=== PATIENT | male | born 1940 | race Two or more races ===

== ENCOUNTER 2021-09-24 22:57 | Inpatient (IN) | payer MEDICARE, OTHER ==
[~2021-09-24] VITALS: Ht 165.1 cm; Wt 77.1 kg
[2021-09-25 00:43] VITALS: BP 116/62
[2021-09-25] MEDS ORDERED: Z GUARD REMEDY 4 OZ OINT TP PRN (02:00)
[2021-09-25] MEDS ORDERED: ZOLPIDEM TARTRATE 5 MG TABLET PO PRN (02:00)
[2021-09-25] MEDS ORDERED: HYDROCODONE/APAP 5/325MG TABLET PO PRN (02:00)
[2021-09-25] MEDS ORDERED: ONDANSETRON HCL/PF 4 MG/2 ML VIAL IVP PRN (02:00)
[2021-09-25] MEDS ORDERED: ACETAMINOPHEN 325 MG TABLET PO PRN (02:00)
[2021-09-25] MEDS ORDERED: MAGNESIUM HYDROXIDE 30 ML UDC PO PRN (02:00)
[2021-09-25] MEDS ORDERED: MAG HYDROX/AL HYDROX/SIMETH 30 ML UDC PO PRN (02:00)
[2021-09-25 02:04] VITALS: BP 116/62
[2021-09-25] MEDS ORDERED: TAMS-12 PO (02:15)
[2021-09-25] MEDS ORDERED: CLOP75TA15 PO (02:15)
[2021-09-25] MEDS ORDERED: LOSA50TA39 PO (02:15)
[2021-09-25] MEDS ORDERED: ALBU6.7H9 INH (02:18)
[2021-09-25] MEDS ORDERED: ENOXAPARIN SODIUM 40 MG/0.4 ML DISP.SYRIN SQ ONE (02:30)
--- NOTE | 2021-09-25 02:38 | NUR ---
NASREEN/TELE/RN RECEIVED PATIENT FROM [facility] BY AMBULANCE AT ABOUT 0043. PATIENT WAS AWAKE, ALERT, ORIENTED, COMFORTABLE, NO C/O PAIN, NO DISTRESS NOTED. PATIENT WAS MADE COMFORTABLE IN BED, TELE MONITOR APPLIED. ADMISSION DONE PER PROTOCOL. UNABLE TO DO FULL PHYSICAL ASSESSMENT PATIENT REFUSED TO REMOVE HIS SHIRT AND PANTS. ABLE TO ASSESS THE BLE SWELLING, REDNESS AND SOME BRUISES AND PATIENT ALLOWED TO TAKE PICTURE OF THEM. PLAN OF CARE DISCUSSED WITH THE PATIENT AND VERBALISED UNDERSTANDING AND AGREEMENT. TAUGHT THE USE OF CALL LIGHT AND PLACED IT AT BEDSIDE WITHIN REACH. ALL NEEDS ATTENDED AT THIS TIME. WILL MONITOR.
[2021-09-25 04:00] VITALS: BP 141/62
[2021-09-25 06:27] LABS: BASOPHILS % (AUTO) 0.2 % (0.0-2.0); EOSINOPHILS % (AUTO) 1.5 % (0.0-6.0); HEMATOCRIT 41 % (39-51); HEMOGLOBIN 13.4 g/dL (13.5-17.5); LYMPHOCYTES % (AUTO) 42.1 % (20.0-44.0); MEAN CORPUSCULAR HGB CONC 33 g/dl (31.0-36.0); MEAN CORPUSCULAR VOLUME 85 fL (80-96); MONOCYTES % (AUTO) 14.6 % (2.0-12.0); NEUTROPHILS % (AUTO) 41.6 % (43.0-81.0); PLATELET COUNT (AUTO) 241 K/uL (150-450); RED BLOOD CELL COUNT(AUTO) 4.81 MIL/uL (4.5-6.0); WHITE BLOOD COUNT (AUTO) 7.2 K/uL (4.3-11.0)
--- NOTE | 2021-09-25 06:41 | NUR ---
MS/TELE/RN PATIENT IS IN BED AWAKE, ALERT, ORIENTED, USING HIS CELLPHONE, ALL NEEDS ATTENDED AT THIS TIME, WILL CONTINUE TO MONITOR.
[2021-09-25 07:06] LABS: ALBUMIN 3.3 g/dL (3.4-5.0); BILIRUBIN,TOTAL 1.1 mg/dL (0.2-1.0); CALCIUM, SERUM 8.5 mg/dL (8.5-10.1); POTASSIUM 3.8 mmol/L (3.5-5.1); TOTAL PROTEIN, SERUM 6.2 g/dL (6.4-8.2)
[2021-09-25] MEDS ORDERED: PANTOPRAZOLE 40 MG TABLET.DR PO SCH (07:30)
--- NOTE | 2021-09-25 07:33 | NUR ---
RN OPENING NOTES PATIENT AWAKE, A/O X4. NO S/S OF PAIN NOTED AT THIS TIME. PATIENT ON ROOM AIR, NO DISTRESS OR SHORTNESS OF BREATH. IV ACCESS LAC #20G, INTACT, PATENT AND FLUSHING WELL. PATIENT ON EXTERNAL PATIENT CARE REPRESENTATIVE CURRENT READING OF S.R. WITH AV BLOCK AND HR OF 64. FALL AND SAFETY MEASURES IN PLACE, BED ALARM ON, BED IN LOW AND LOCK POSITION, CALL LIGHT AND TABLE WITHIN EASY REACH, SIDE RAILS UP X2. WILL CONTINUE TO MONITOR.
[2021-09-25 08:10] VITALS: BP 119/73
[2021-09-25] MEDS ORDERED: CYCL30DR EACHEYE (08:29)
[2021-09-25] MEDS ORDERED: AMLO2.5T4 PO (08:29)
[2021-09-25] MEDS ORDERED: OMEP40CA21 PO (08:29)
[2021-09-25] MEDS ORDERED: ATOR40TA PO (08:29)
[2021-09-25] MEDS ORDERED: CARV3.122 PO (08:29)
[2021-09-25] MEDS ORDERED: BISA10SU11 RC (08:39)
[2021-09-25] MEDS ORDERED: DOCU-141 PO (08:39)
[2021-09-25] MEDS: FUROSEMIDE 40 MG/4 ML VIAL IV SCH (09:06)
[2021-09-25] MEDS ORDERED: Medication Not On Formulary EA (Cyclosporine (Restasis) 1 DROP) EACHEYE PRN (11:00)
[2021-09-25] MEDS ORDERED: ALBUTEROL FS 2.5 MG/0.5 ML VIAL.NEB NEB PRN (11:30)
[2021-09-25] MEDS: BISACODYL SUPP (10 MG) 10 MG/SUPP.RECT SUPP.RECT RC PRN (12:17)
[2021-09-25 16:00] VITALS: BP 118/65
[2021-09-25] MEDS: DOCUSATE SODIUM 100 MG CAPSULE PO SCH (17:04)
[2021-09-25] MEDS: LOSARTAN POTASSIUM 50 MG TABLET PO SCH (17:05)
[2021-09-25] MEDS ORDERED: TAMSULOSIN 0.4 MG CAP.SR.24H PO SCH (18:00)
[2021-09-25] MEDS ORDERED: ATORVASTATIN 40 MG TABLET PO SCH (18:00)
--- NOTE | 2021-09-25 18:45 | NUR ---
RN CLOSING NOTES PATIENT AWAKE, A/O X4. NO S/S OF PAIN NOTED AT THIS TIME. PATIENT ON ROOM AIR, NO DISTRESS OR SHORTNESS OF BREATH. IV ACCESS LAC #20G, INTACT, PATENT AND FLUSHING WELL. PATIENT ON EXTERNAL WIRELINE FIELD OPERATOR CURRENT READING OF S.R. AND HR OF 60. ALL SCHEDULE MEDS ADMINISTERED. FALL AND SAFETY MEASURES IN PLACE, BED ALARM ON, BED IN LOW AND LOCK POSITION, CALL LIGHT AND TABLE WITHIN EASY REACH, SIDE RAILS UP X2. WILL ENDORSE TO MANAGER INTENSIVE CARE UNIT.
[2021-09-25 20:00] VITALS: BP 139/79
--- NOTE | 2021-09-25 20:00 | NUR ---
ELECTRICAL ASSISTANT OPENING NOTE PATIENT SLEEPING IN BED, EASILY AWAKENED, ALERT/ORIENTED X 4, PT ABLE TO MAKE NEEDS KNOWN. PATIENT STABLE ON RA, NO S/S OF DISTRESS OR SOB NOTED, BREATHING EVEN AND UNLABORED. PT ON EXTERNAL PHARMACY INFORMATICS MANAGER READING SINUS RHYTHM, HR: 69. IV ACCESS ON LEFT AC #20G INTACT AND SALINE LOCKED. PATIENT IS AMBULATORY AND STEADY. SAFETY MEASURES IN PLACE: CALL LIGHT WITHIN REACH, SIDE RAILS UP X 2, BED LOCKED IN LOW POSITION. WILL CONTINUE TO MONITOR PATIENT
[2021-09-25] MEDS ORDERED: ENOXAPARIN SODIUM 40 MG/0.4 ML DISP.SYRIN SQ SCH (21:00)
--- NOTE | 2021-09-25 22:36 | NUR ---
RN NOTE PATIENT REQUESTING X-RAY OF BILATERAL LEGS, NOTIFIED OPTIMIZATION MANAGER MD WITH ORDER TO ASK DAYSHIFT MD. WILL ENDORSE TO DAYSHIFT NURSE
[2021-09-26] VITALS: BP 121/64
[2021-09-26 04:55] LABS: BILIRUBIN,URINE NEGATIVE (NEGATIVE); COLOR,URINE YELLOW (YELLOW); LEUKOCYTE ESTERASE ,URINE NEGATIVE (NEGATIVE); NITRITE, URINE NEGATIVE (NEGATIVE); PROTEIN,URINE NEGATIVE (NEGATIVE); UGLUCOSE NEGATIVE (NEGATIVE); UROBILINOGEN,URINE 0.2 EU/dL (0.2)
[2021-09-26 04:57] LABS: BACTERIA,URINE None seen /HPF (None Seen); RBC,URINE 0-2 /HPF (0-2); WBC,URINE 0-2 /HPF (0-3)
[2021-09-26 04:58] LABS: SQUAMOUS EPITHELIAL CELL,UR Few /HPF (None Seen)
[2021-09-26 05:00] VITALS: BP 114/49
[2021-09-26 06:42] LABS: BASOPHILS % (AUTO) 0.2 % (0.0-2.0); EOSINOPHILS % (AUTO) 1.1 % (0.0-6.0); HEMATOCRIT 39 % (39-51); HEMOGLOBIN 12.7 g/dL (13.5-17.5); LYMPHOCYTES # (AUTO) 3.4 K/uL (0.8-4.8); LYMPHOCYTES % (AUTO) 44.1 % (20.0-44.0); MEAN CORPUSCULAR HGB CONC 33 g/dl (31.0-36.0); MEAN CORPUSCULAR VOLUME 85 fL (80-96); MONOCYTES # (AUTO) 0.9 K/uL (0.1-1.30); MONOCYTES % (AUTO) 12.3 % (2.0-12.0); NEUTROPHILS # (AUTO) 3.3 K/uL (1.8-8.9); NEUTROPHILS % (AUTO) 42.3 % (43.0-81.0); PLATELET COUNT (AUTO) 233 K/uL (150-450); RED BLOOD CELL COUNT(AUTO) 4.61 MIL/uL (4.5-6.0); WHITE BLOOD COUNT (AUTO) 7.7 K/uL (4.3-11.0)
[2021-09-26 06:48] LABS: CALCIUM, SERUM 8.3 mg/dL (8.5-10.1); CREATININE 1.1 mg/dL (0.6-1.3); MAGNESIUM 2.2 mg/dL (1.8-2.4)
--- NOTE | 2021-09-26 07:02 | NUR ---
SHELLFISH SORTER CLOSING NOTES PATIENT AWAKE IN ROOM, NO SIGNIFICANT CHANGES THROUGHOUT SHIFT. PATIENT STABLE ON RA, NO S/S OF DISTRESS OR SOB NOTED, BREATHING EVEN AND UNLABORED. PT ON EXTERNAL DEPOSITION REPORTER READING SINUS KEVON, HR: 53. MEDICATIONS GIVEN ORDERED, PT NEEDS MET THROUGHOUT SHIFT. PROVIDED PATIENT WITH ICE PACK FOR RIGHT LEG PER PATIENT REQUEST. SAFETY MEASURES IN PLACE: CALL LIGHT WITHIN REACH, SIDE RAILS UP X 2, BED LOCKED IN LOW POSITION. WILL ENDORSE TO DAY SHIFT NURSE FOR CONTINUITY OF CARE
[2021-09-26] MEDS ORDERED: PANTOPRAZOLE 40 MG TABLET.DR PO SCH (07:30)
--- NOTE | 2021-09-26 07:30 | NUR ---
RN OPENING NOTES PATIENT AWAKE IN BED RESTING, A/O X4. NO S/S OF PAIN NOTED AT THIS TIME. PATIENT ON ROOM AIR, NO DISTRESS OR SHORTNESS OF BREATH. IV ACCESS LAC #20G, INTACT, PATENT AND FLUSHING WELL. PATIENT ON EXTERNAL LASTING ROOM MACHINE OPERATOR CURRENT READING OF S.R. WITH AV BLOCK AND HR OF 64. FALL AND SAFETY MEASURES IN PLACE, BED ALARM ON, BED IN LOW AND LOCK POSITION, CALL LIGHT AND TABLE WITHIN EASY REACH, SIDE RAILS UP X2. WILL CONTINUE TO MONITOR.
[2021-09-26 07:52] LABS: THYROID STIMULATING HORMONE 2.651 uIU/mL (0.358-3.74)
[2021-09-26 08:00] VITALS: BP 133/75
[2021-09-26] MEDS: FUROSEMIDE 40 MG/4 ML VIAL IV SCH (08:47)
[2021-09-26] MEDS: BISACODYL SUPP (10 MG) 10 MG/SUPP.RECT SUPP.RECT RC PRN (08:48)
[2021-09-26] MEDS: DOCUSATE SODIUM 100 MG CAPSULE PO SCH (08:48)
[2021-09-26] MEDS: LOSARTAN POTASSIUM 50 MG TABLET PO SCH (08:49)
[2021-09-26 08:50] VITALS: BP 133/75
[2021-09-26] MEDS ORDERED: CLOPIDOGREL BISULFATE 75 MG TABLET PO SCH (09:00)
[2021-09-26] MEDS ORDERED: AMLODIPINE BESYLATE 2.5 MG TABLET PO SCH (09:00)
[2021-09-26] MEDS ORDERED: CARVEDILOL 3.125 MG TABLET PO SCH (09:00)
[2021-09-26] MEDS: POTASSIUM CHLORIDE 20 MEQ TAB.PRT.SR PO SCH ×3 (09:48→12:12)
[2021-09-26] MEDS ORDERED: FURO-145 PO (12:35)
[2021-09-26] MEDS ORDERED: POTA8TAB3 PO (12:35)
[2021-09-26] MEDS ORDERED: K PHOS NEUTRAL 250 MG TABLET PO ONE (14:00)
--- NOTE | 2021-09-26 17:00 | NUR ---
MANAGER DEVELOPMENTAL NOTE PATIENT DISCHARGE IN STABLE MEDICAL CONDITION. A/O X4. V/S TAKEN, STABLE AND RECORDED. NO IV ACCESS. PATIENT REFUSED SKIN ASSESSMENT AND PICTURES. NAME ARM BAND REMOVED. ALL BELONGINGS CHECKED AND SIGNED. HEALTH TEACHING AND DISCHARGE INSTRUCTIONS GIVEN AND VERBALIZED UNDERSTANDING. PATIENT LEFT UNIT AMBULATING WITH NO SIGNS OF DISTRESS, ACCOMPANIED BY RN TO THE LOBBY. CHARGE NURSE AWARE OF DISCHARGE.
== END 2021-09-26 17:05 | disposition home or self-care (01) | DRG 605 ==
LOC: TELE 09-25 00:39
PROVIDERS: ADMIT Nurse Practitioner Acute Care; ATTEND Nurse Practitioner Acute Care
DX: S80.11XA Contusion of right lower leg, initial encounter (principal); R60.9 Edema, unspecified; I10 Essential (primary) hypertension; I25.10 Atherosclerotic heart disease of native coronary artery without angina pectoris; E78.5 Hyperlipidemia, unspecified; N40.0 Benign prostatic hyperplasia without lower urinary tract symptoms; I35.0 Nonrheumatic aortic (valve) stenosis; I25.2 Old myocardial infarction; Z95.5 Presence of coronary angioplasty implant and graft; X58.XXXA Exposure to other specified factors, initial encounter; Y93.9 Activity, unspecified; Y92.009 Unspecified place in unspecified non-institutional (private) residence as the place of occurrence of the external cause
CPT/HCPCS: 36415; 71045-TC; 73590-TC; 80048-TC; 80053-TC; 80061-TC; 81001; 83735-TC; 83880; 84100-TC; 84443-TC; 84484-TC; 85025-TC; 87081-TC; 93307-TC; 93970-TC; 97116-TC; 97530-TC; G0378; J1650; J1940

== ENCOUNTER 2021-10-02 20:36 | Inpatient (IN) | payer MEDICARE, OTHER ==
[~2021-10-02] VITALS: Ht 165.1 cm; Wt 76.2 kg
[~2021-10-02 20:36] MED LIST: ALBU6.7H9 INH; AMLO2.5T4 PO; ATOR40TA PO; BISA10SU11 RC; CARV3.122 PO; CLOP75TA15 PO; CYCL30DR EACHEYE; DOCU-141 PO; FURO-145 PO; LOSA50TA39 PO; OMEP40CA21 PO; POTA8TAB3 PO; TAMS-12 PO
--- NOTE | 2021-10-02 20:58 | NUR ---
PT BIBSELF C/O BILATERAL LEG SWELLING X10 DAYS. PT AAOX4 BREATHING EVENLY AND UNLABORED. UPON ASSESSMENT, PT RT LEG IS LARGER THAN LT LEG. PT ATTACHED TO MONITOR AND POX. PT GIVEN BLANKET AND CALL LIGHT WITHIN REACH
--- NOTE | 2021-10-02 21:30 | NUR ---
US AT BEDSIDE
[2021-10-02 22:52] LABS: BASOPHILS % (AUTO) 0.4 % (0.0-2.0); EOSINOPHILS % (AUTO) 1.4 % (0.0-6.0); HEMATOCRIT 40 % (39-51); HEMOGLOBIN 12.9 g/dL (13.5-17.5); LYMPHOCYTES # (AUTO) 2.3 K/uL (0.8-4.8); MEAN CORPUSCULAR HGB CONC 32 g/dl (31.0-36.0); MEAN CORPUSCULAR VOLUME 87 fL (80-96); MONOCYTES % (AUTO) 17.8 % (2.0-12.0); NEUTROPHILS # (AUTO) 2.1 K/uL (1.8-8.9); NEUTROPHILS % (AUTO) 38.4 % (43.0-81.0); PLATELET COUNT (AUTO) 250 K/uL (150-450); RED BLOOD CELL COUNT(AUTO) 4.67 MIL/uL (4.5-6.0); WHITE BLOOD COUNT (AUTO) 5.6 K/uL (4.3-11.0)
--- NOTE | 2021-10-02 22:59 | NUR ---
COVID SWAB DONE AND SENT TO LAB
[2021-10-02] MEDS ORDERED: VANCOMYCIN 1 GM VIAL ONE (23:14)
[2021-10-02] MEDS ORDERED: VANCOMYCIN 1 GM in IV D5W 250 ML IV ONE (23:30)
--- NOTE | 2021-10-03 00:35 | NUR ---
EPIC PANEL PAGED
[2021-10-03 00:53] LABS: CALCIUM, SERUM 8.6 mg/dL (8.5-10.1); CARBON DIOXIDE 24 mmol/L (21-32); CHLORIDE 104 mmol/L (98-107); CREATININE 1.7 mg/dL (0.6-1.3); GLUCOSE 123 mg/dL (74-106); POTASSIUM 4.1 mmol/L (3.5-5.1); SODIUM SERUM 136 mmol/L (136-145)
[2021-10-03 00:59] LABS: UREA NITROGEN, BLOOD 25 mg/dL (7-18)
--- NOTE | 2021-10-03 01:00 | NUR ---
GAVE REPORT TO CORKY GARZA FOR CÉSAR
--- NOTE | 2021-10-03 01:13 | NUR ---
MRSA SENT TO LAB
--- NOTE | 2021-10-03 01:19 | NUR ---
ROOM 326 MS
[2021-10-03 01:45] VITALS: BP 108/61
[2021-10-03 01:50] VITALS: BP 108/61
--- NOTE | 2021-10-03 01:50 | NUR ---
patient arrived in the floor from er, awake, a.o x4. no s/sof distress noted. no complain of pain. call light within reach. bed alarm on, bed in lowest and locked position. patient refused to be skin assessed on the back, sacral and thighs and perineal area. patient refused to wear sock on the right foot. instructed to call for assistance when OOB, verbalized understanding. patient refused the left siderail to be up.
--- NOTE | 2021-10-03 02:52 | NUR ---
Informed THERESE Pfeiffer for admission orders.
[2021-10-03] MEDS ORDERED: MAG HYDROX/AL HYDROX/SIMETH 30 ML UDC PO PRN (03:00)
[2021-10-03] MEDS ORDERED: MAGNESIUM HYDROXIDE 30 ML UDC PO PRN (03:00)
[2021-10-03] MEDS ORDERED: ONDANSETRON HCL/PF 4 MG/2 ML VIAL IVP PRN (03:00)
[2021-10-03] MEDS ORDERED: IV NS 0.9% 1,000 ML IV PRN (03:00)
[2021-10-03 03:01] LABS: EOSINOPHILS % (MANUAL) 1 % (0-4); LYMPHOCYTES % (MANUAL) 44 % (16-48); MONOCYTES % (MANUAL) 13 % (0-11.0); NEUTROPHILS % (MANUAL) 42 (42-76)
[2021-10-03] MEDS: ENOXAPARIN SODIUM 30 MG/0.3 ML DISP.SYRIN SQ SCH ×2 (06:05→21:15)
--- NOTE | 2021-10-03 07:50 | NUR ---
MS RN OPENING NOTES RECEIVED PT IN BED WITH EYES CLOSED, EASY TO AROUSE. A/O X4. NO S/SX OF ACUTE DISTRESS NOTED. SO SOB. PT ON ROOM AIR, TOLERATING WELL. IV ACCESS LAC#20 PATENT AND INTACT WITH NS @60MLS/HR. SAFETY MEASURES IN PLACE WITH BED LOCKED IN LOW POSITION WITH SIDE RAILS UP X 2. CALL LIGHT IS WITHIN REACH. WILL CONTINUE TO MONITOR PATIENT THROUGHOUT SHIFT.
[2021-10-03 08:00] VITALS: BP 122/68
[2021-10-03] MEDS ORDERED: Medication Not On Formulary EA (Cyclosporine (Restasis) 1 DROP) EACHEYE PRN (08:30)
[2021-10-03] MEDS ORDERED: BISACODYL SUPP (10 MG) 10 MG/SUPP.RECT SUPP.RECT RC PRN (08:30)
[2021-10-03] MEDS: CARVEDILOL 3.125 MG TABLET PO SCH ×2 (08:49→08:55)
[2021-10-03] MEDS: DOCUSATE SODIUM 100 MG CAPSULE PO SCH ×2 (08:49→18:06)
[2021-10-03] MEDS: CLOPIDOGREL BISULFATE 75 MG TABLET PO SCH (08:49)
[2021-10-03] MEDS: LOSARTAN POTASSIUM 50 MG TABLET PO SCH ×3 (08:50→18:06)
[2021-10-03] MEDS: AMLODIPINE BESYLATE 2.5 MG TABLET PO SCH ×2 (08:50→08:55)
--- NOTE | 2021-10-03 08:50 | NUR ---
RN NOTE ALL BP MEDS HELD THIS MORNING D/T DECREASED BLOOD PRESSURE OF 105/65 HR 89.
[2021-10-03] MEDS ORDERED: ALBUTEROL FS 2.5 MG/0.5 ML VIAL.NEB IH PRN (09:00)
[2021-10-03] MEDS ORDERED: MORPHINE SULFATE INJ 2 MG/ML DISP.SYRIN IV PRN (12:30)
[2021-10-03 16:00] VITALS: BP 128/64
[2021-10-03] MEDS: ATORVASTATIN 40 MG TABLET PO SCH (18:06)
[2021-10-03] MEDS: TAMSULOSIN 0.4 MG CAP.SR.24H PO SCH (18:06)
--- NOTE | 2021-10-03 19:11 | NUR ---
MS RN CLOSING NOTES PT IS IN BED RESTING COMFORTABLY. A/O X4. NO S/SX OF ACUTE DISTRESS NOTED. SO SOB. PT ON ROOM AIR, TOLERATING WELL. IV ACCESS LAC#20 PATENT AND INTACT. NO C/O PAIN AT THIS TIME. SAFETY MEASURES IN PLACE WITH BED LOCKED IN LOW POSITION WITH SIDE RAILS UP X 2. CALL LIGHT IS WITHIN REACH. WILL ENDORSE CONTINUITY OF CARE TO ONCOMING SHIFT.
[2021-10-03 20:00] VITALS: BP 121/66
--- NOTE | 2021-10-03 20:08 | NUR ---
MS RN OPENING NOTES: RECEIVED PATIENT AWAKE IN BED, BED IN LOW POSITION, CALL LIGHTS WITHIN REACH, NO COMPLAIN OF PAIN AND DISCOMFORT AT THIS TIME, PATIENT IS A/OX4 ABLE TO MAKE NEEDS KNOWN, CONTINENT ON URINAL, ON ROOM AIR SATURATING WELL, WITH IV LINE AT LAC#20SL .PATIENT KEPT CLEAN AND DRY ALL NEEDS WILL CONTINUE TO MONITOR.
[2021-10-03 20:49] VITALS: BP 121/66
[2021-10-03] MEDS: ACETAMINOPHEN 325 MG TABLET PO PRN (22:22)
[2021-10-03] MEDS: VANCOMYCIN 1 GM in IV D5W 250 ML IV SCH (22:25)
[2021-10-04 06:44] LABS: BASOPHILS % (AUTO) 0.2 % (0.0-2.0); EOSINOPHILS % (AUTO) 1.2 % (0.0-6.0); HEMATOCRIT 43 % (39-51); HEMOGLOBIN 14.1 g/dL (13.5-17.5); LYMPHOCYTES % (AUTO) 60.2 % (20.0-44.0); MEAN CORPUSCULAR HGB CONC 33 g/dl (31.0-36.0); MEAN CORPUSCULAR VOLUME 86 fL (80-96); MONOCYTES % (AUTO) 15.6 % (2.0-12.0); NEUTROPHILS # (AUTO) 1.5 K/uL (1.8-8.9); NEUTROPHILS % (AUTO) 22.8 % (43.0-81.0); PLATELET COUNT (AUTO) 278 K/uL (150-450); RED BLOOD CELL COUNT(AUTO) 5.05 MIL/uL (4.5-6.0); WHITE BLOOD COUNT (AUTO) 6.7 K/uL (4.3-11.0)
--- NOTE | 2021-10-04 06:58 | NUR ---
RN CLOSING NOTES: RECEIVED PATIENT SLEEP IN BED COMFORTABLY, BED IN LOW POSITION, CALL LIGHTS WITHIN REACH, NO COMPLAIN OF PAIN AND DISCOMFORT AT THIS TIME, PATIENT ON ROOM AIR SDATURATING WELL, WITH IV LINE AT LAC#20 SL, PATIENT IS A/OX4 ABLE TO MAKE NEEDS KNOWN, AMBULATORY WITH SUPERVISION, PATIENT KEPT CLEAN AND DRY ALL NEEDS MET ENDORSE TO INCOMING SHIFT.
--- NOTE | 2021-10-04 07:41 | NUR ---
MS RN OPENING NOTE Patient in bed, awake. A/O x 4, able to make needs known. On room air, breathing evenly and unlabored. No SOB or s/s of distress noted. IV access on LAC #20G SL, intact and patent. Right lower leg redness noted. Safety precautions in place: bed in low, locked position; siderails up x 2; call light within reach. Will continue to monitor.
[2021-10-04] MEDS: CLOPIDOGREL BISULFATE 75 MG TABLET PO SCH (08:33)
[2021-10-04] MEDS: DOCUSATE SODIUM 100 MG CAPSULE PO SCH ×2 (08:33→17:26)
[2021-10-04] MEDS: FUROSEMIDE 20 MG/2 ML VIAL IV SCH (08:33)
[2021-10-04] MEDS: PANTOPRAZOLE 40 MG TABLET.DR PO SCH (08:33)
[2021-10-04] MEDS: AMLODIPINE BESYLATE 2.5 MG TABLET PO SCH (08:34)
[2021-10-04] MEDS: CARVEDILOL 3.125 MG TABLET PO SCH (08:34)
[2021-10-04 08:46] LABS: CARBON DIOXIDE 25 mmol/L (21-32)
[2021-10-04 10:43] LABS: CALCIUM, SERUM 8.9 mg/dL (8.5-10.1); CHLORIDE 104 mmol/L (98-107); CREATININE 1.4 mg/dL (0.6-1.3); GLUCOSE 114 mg/dL (74-106); MAGNESIUM 2.4 mg/dL (1.8-2.4); PHOSPHORUS 3.7 mg/dL (2.5-4.9); POTASSIUM 4.4 mmol/L (3.5-5.1); SODIUM SERUM 140 mmol/L (136-145); UREA NITROGEN, BLOOD 18 mg/dL (7-18)
--- NOTE | 2021-10-04 13:30 | NUR ---
RN NOTE Compression socks applied to BLE. Reinforced teaching on keeping legs elevated. Will continue to monitor patient.
[2021-10-04 16:00] VITALS: BP 98/60
[2021-10-04 16:19] LABS: CHOLESTEROL 140 mg/dL (<200); HDL CHOLESTEROL 30 mg/dL (40-60); LDL 88 mg/dL (0-99); TRIGLYCERIDES 129 mg/dL (30-150)
[2021-10-04] MEDS: ATORVASTATIN 40 MG TABLET PO SCH (17:26)
[2021-10-04] MEDS: TAMSULOSIN 0.4 MG CAP.SR.24H PO SCH (17:26)
--- NOTE | 2021-10-04 19:20 | NUR ---
MS RN CLOSING NOTE Patient in bed, asleep. A/O x 4, able to make needs known. Stable on room air, breathing evenly and unlabored. No SOB or s/s of distress noted. IV access on LAC #20G SL, intact and patent. Right lower leg redness noted. Compression socks on BLE. Due meds given. All needs attended to. Safety precautions maintained: bed in low, locked position; siderails up x 2; call light within reach. Will endorse to maintenance mechanic 2nd shift nurse for CÉSAR.
--- NOTE | 2021-10-04 19:21 | NUR ---
RN OPENING NOTES RECEIVED PT IN BED, ASLEEP, AWAKENS TO VERBAL STIMULI. ON RA AND TOLERATING WELL. NO SOB NOTED. NO S/SX OF RESPIRATORY DISTRESS NOTED. IV ACCESS IN LAC #20G. IV IS INTACT, PATENT, AND FLUSHING WELL. SAFETY PRECAUTIONS IN PLACE: BED IN LOWEST, LOCKED POSITION, SIDERAILS UPx2, AND BRAKES ON. TABLE AND CALL LIGHT WITHIN REACH. WILL CONTINUE TO MONITOR.
[2021-10-04 20:35] VITALS: BP 89/37
--- NOTE | 2021-10-04 21:04 | NUR ---
RETOOK BLOOD PRESSURE AND IT WAS 108/56 WITH PULSE OF 56.
[2021-10-04] MEDS: ENOXAPARIN SODIUM 30 MG/0.3 ML DISP.SYRIN SQ SCH (21:07)
[2021-10-04] MEDS: VANCOMYCIN 1 GM in IV D5W 250 ML IV SCH (22:03)
[2021-10-04] MEDS: ACETAMINOPHEN 325 MG TABLET PO PRN (22:27)
--- NOTE | 2021-10-05 06:46 | NUR ---
RN CLOSING NOTES PT IN BEDSIDE CHAIR, AWAKE. ON RA AND TOLERATING WELL. NO SOB NOTED. NO S/SX OF RESPIRATORY DISTRESS NOTED. IV ACCESS IN LAC #20G. IV IS INTACT, PATENT, AND FLUSHING WELL. ALL NEEDS MET. PT KEPT CLEAN AND DRY. SAFETY PRECAUTIONS IN PLACE: BED IN LOWEST, LOCKED POSITION, SIDERAILS UPx2, AND BRAKES ON. TABLE AND CALL LIGHT WITHIN REACH. WILL ENDORSE TO ONCOMING SHIFT FOR CÉSAR.
[2021-10-05] MEDS: PANTOPRAZOLE 40 MG TABLET.DR PO SCH (06:49)
--- NOTE | 2021-10-05 07:36 | NUR ---
RN OPENING NOTES RECEIVED PT IN BED, AWAKE, ABLE TO MAKE NEEDS KNOWN. ON RA AND TOLERATING WELL. NO SOB NOTED. NO S/SX OF RESPIRATORY DISTRESS NOTED. IV ACCESS IN LAC #20G, INTACT, PATENT, AND FLUSHING WELL. MAJO HOSE ON LEFT LEG NOTED. SAFETY PRECAUTIONS IN PLACE: BED IN LOWEST, LOCKED POSITION, SIDE RAILS UPx2, AND BRAKES ON. TABLE AND CALL LIGHT WITHIN REACH. WILL CONTINUE TO MONITOR ACCORDINGLY.
[2021-10-05 08:00] VITALS: BP 129/72
[2021-10-05] MEDS: CLOPIDOGREL BISULFATE 75 MG TABLET PO SCH (08:56)
[2021-10-05] MEDS: FUROSEMIDE 20 MG/2 ML VIAL IV SCH (08:56)
[2021-10-05] MEDS: DOCUSATE SODIUM 100 MG CAPSULE PO SCH ×2 (08:56→16:10)
[2021-10-05] MEDS: CARVEDILOL 3.125 MG TABLET PO SCH (08:57)
[2021-10-05] MEDS: AMLODIPINE BESYLATE 2.5 MG TABLET PO SCH (08:57)
[2021-10-05 12:01] LABS: CALCIUM, SERUM 8.7 mg/dL (8.5-10.1); CREATININE 1.3 mg/dL (0.6-1.3); POTASSIUM 3.8 mmol/L (3.5-5.1)
[2021-10-05 16:00] VITALS: BP 131/64
[2021-10-05] MEDS: TAMSULOSIN 0.4 MG CAP.SR.24H PO SCH (17:11)
[2021-10-05] MEDS: ATORVASTATIN 40 MG TABLET PO SCH (17:11)
--- NOTE | 2021-10-05 18:48 | NUR ---
RN CLOSING NOTES PATIENT IN BED, AWAKE, ABLE TO MAKE NEEDS KNOWN. ON RA AND TOLERATING WELL. NO SOB NOTED. NO S/SX OF RESPIRATORY DISTRESS NOTED. IV ACCESS IN LAC #20G, INTACT, PATENT, AND FLUSHING WELL. MAJO HOSE ON BOTH LEGS NOTED. SAFETY PRECAUTIONS IN PLACE: BED IN LOWEST, LOCKED POSITION, SIDE RAILS UPx2, AND BRAKES ON. TABLE AND CALL LIGHT WITHIN REACH. ALL NEEDS ATTENDED AND MET. DUE MEDS GIVEN ORDERED. WILL ENDORSE TO ONCOMING SHIFT FOR CÉSAR.
--- NOTE | 2021-10-05 19:45 | NUR ---
Patient is A&Ox4, awake and calm. States he has some discomfort to BLE but no pain. Hang stearns currently on. LAC #20G intact and patent. No needs at this time. No signs of distress. Will continue to monitor.
[2021-10-05 20:00] VITALS: BP 120/64
[2021-10-05] MEDS: ENOXAPARIN SODIUM 30 MG/0.3 ML DISP.SYRIN SQ SCH (20:34)
--- NOTE | 2021-10-05 23:54 | NUR ---
vanco trough still pending
--- NOTE | 2021-10-06 00:21 | NUR ---
Called lab -techs are currently giving endorsement. Made aware that Vanco trough is still not back yet despite being drawn at 2210. -cannot give vanco until results are back.
--- NOTE | 2021-10-06 01:23 | NUR ---
Called lab upon vanco trough still not back. Rep stated that vanco trough was 7.1 and is okay to hang next dose. Rep also stated he would re-enter results because it still only says pending when checked through [id number].
[2021-10-06] MEDS: VANCOMYCIN 1 GM in IV D5W 250 ML IV SCH (01:27)
--- NOTE | 2021-10-06 06:24 | NUR ---
Patient A&Ox4 stable overnight. Tolerating IV ABX well. LAC #20G still intact and patent. No issues just mild discomfort/ tenderness at R leg site with swelling.
[2021-10-06 06:26] LABS: BASOPHILS % (AUTO) 0.4 % (0.0-2.0); EOSINOPHILS % (AUTO) 1.6 % (0.0-6.0); HEMATOCRIT 44 % (39-51); HEMOGLOBIN 14.3 g/dL (13.5-17.5); LYMPHOCYTES # (AUTO) 3.5 K/uL (0.8-4.8); LYMPHOCYTES % (AUTO) 54.7 % (20.0-44.0); MEAN CORPUSCULAR HGB CONC 33 g/dl (31.0-36.0); MEAN CORPUSCULAR VOLUME 86 fL (80-96); MONOCYTES # (AUTO) 0.8 K/uL (0.1-1.30); MONOCYTES % (AUTO) 12.8 % (2.0-12.0); NEUTROPHILS # (AUTO) 1.9 K/uL (1.8-8.9); NEUTROPHILS % (AUTO) 30.5 % (43.0-81.0); PLATELET COUNT (AUTO) 271 K/uL (150-450); RED BLOOD CELL COUNT(AUTO) 5.15 MIL/uL (4.5-6.0); WHITE BLOOD COUNT (AUTO) 6.3 K/uL (4.3-11.0)
[2021-10-06 07:18] LABS: CALCIUM, SERUM 8.6 mg/dL (8.5-10.1); CREATININE 1.2 mg/dL (0.6-1.3); POTASSIUM 3.8 mmol/L (3.5-5.1)
--- NOTE | 2021-10-06 07:21 | NUR ---
RN OPENING NOTES RECEIVED PT IN BED, AWAKE, ABLE TO MAKE NEEDS KNOWN. PATIENT BREATHING EVENLY AND NONLABORED ON RA AND TOLERATING WELL. NO SOB NOTED. NO S/SX OF RESPIRATORY DISTRESS NOTED. IV ACCESS IN LAC #20G, INTACT, PATENT, AND FLUSHING WELL. MAJO MANUEL NOTED. SAFETY PRECAUTIONS IN PLACE: BED IN LOWEST, LOCKED POSITION, SIDE RAILS UPx2, AND BRAKES ON. TABLE AND CALL LIGHT WITHIN REACH. WILL CONTINUE TO MONITOR
[2021-10-06] MEDS: PANTOPRAZOLE 40 MG TABLET.DR PO SCH (08:11)
[2021-10-06] MEDS: CARVEDILOL 3.125 MG TABLET PO SCH (08:12)
[2021-10-06] MEDS: CLOPIDOGREL BISULFATE 75 MG TABLET PO SCH (08:12)
[2021-10-06] MEDS: AMLODIPINE BESYLATE 2.5 MG TABLET PO SCH (08:12)
[2021-10-06] MEDS: DOCUSATE SODIUM 100 MG CAPSULE PO SCH ×2 (08:12→17:01)
[2021-10-06] MEDS: VANCOMYCIN 0.75 GM in IV D5W 250 ML IV SCH ×2 (10:08→22:22)
--- NOTE | 2021-10-06 11:39 | NUR ---
RN NOTE PATIENT NOTED WITH IV SWELLING, IV ACCESS REMOVED AND WARM COMPRESS APPLIED. WILL REINSERT IV ACCESS.
[2021-10-06] MEDS: TAMSULOSIN 0.4 MG CAP.SR.24H PO SCH (17:01)
[2021-10-06] MEDS: ATORVASTATIN 40 MG TABLET PO SCH (17:01)
--- NOTE | 2021-10-06 18:24 | NUR ---
RN OPENING NOTES RECEIVED PT IN BED, AWAKE, ABLE TO MAKE NEEDS KNOWN. PATIENT BREATHING EVENLY AND NONLABORED ON RA AND TOLERATING WELL. NO SOB NOTED. NO S/SX OF RESPIRATORY DISTRESS NOTED. IV ACCESS REMOVED EARLIER IN SHIFT DUE TO INFILTRATION, MINIMAL SWELLING NOTED. PATIENT STATED HE WOULD ALLOW ANOTHER IV @ 2200 BEFORE NEXT DOSE. MD AWARE, CHARGE AWARE. MAJO MANUEL NOTED. SAFETY PRECAUTIONS IN PLACE: BED IN LOWEST, LOCKED POSITION, SIDE RAILS UPx2, AND BRAKES ON. TABLE AND CALL LIGHT WITHIN REACH. WILL ENDORSE TO ONCOMING SHIFT Addendum: 10/06/21 at 1826 by RASHAWN SILVEIRA RN CLOSING
[2021-10-06 20:16] VITALS: BP 100/54
[2021-10-06] MEDS: ENOXAPARIN SODIUM 30 MG/0.3 ML DISP.SYRIN SQ SCH (20:56)
--- NOTE | 2021-10-06 20:56 | NUR ---
Patient has I&D scheduled for AM. Okay to hold PM lovenox per on-call provider.
--- NOTE | 2021-10-07 06:20 | NUR ---
Patient is currently awake A&Ox4. Stable overnight. Has TUYET #20G IV flushed and patent. Hang hathaway taken off at bedtime and applied back in AM. Tolerating IV ABX well. Denies any needs at this time.
[2021-10-07] MEDS: PANTOPRAZOLE 40 MG TABLET.DR PO SCH (06:55)
[2021-10-07 07:47] LABS: CALCIUM, SERUM 9.3 mg/dL (8.5-10.1); CREATININE 1.2 mg/dL (0.6-1.3); POTASSIUM 3.9 mmol/L (3.5-5.1)
[2021-10-07] MEDS: CARVEDILOL 3.125 MG TABLET PO SCH (08:19)
[2021-10-07] MEDS: CLOPIDOGREL BISULFATE 75 MG TABLET PO SCH (08:19)
[2021-10-07] MEDS: DOCUSATE SODIUM 100 MG CAPSULE PO SCH ×2 (08:19→17:14)
[2021-10-07] MEDS: AMLODIPINE BESYLATE 2.5 MG TABLET PO SCH (08:20)
[2021-10-07] MEDS: VANCOMYCIN 0.75 GM in IV D5W 250 ML IV SCH ×2 (10:19→22:41)
[2021-10-07] MEDS: TAMSULOSIN 0.4 MG CAP.SR.24H PO SCH (17:14)
[2021-10-07] MEDS: ATORVASTATIN 40 MG TABLET PO SCH (17:15)
--- NOTE | 2021-10-07 18:31 | NUR ---
RN CLOSING NOTES PT IN BED, AWAKE, ABLE TO MAKE NEEDS KNOWN. PATIENT BREATHING EVENLY AND NONLABORED ON RA AND TOLERATING WELL. NO SOB NOTED. NO S/SX OF RESPIRATORY DISTRESS NOTED. IV ACCESS TO LAC # 20 GAUGE PATENT AND INTACT PATIENT IS AWAITING PROCEDURE, MD AWARE, CHARGE AWARE. MAJO MANUEL NOTED. SAFETY PRECAUTIONS IN PLACE: BED IN LOWEST, LOCKED POSITION, SIDE RAILS UPx2, AND BRAKES ON. TABLE AND CALL LIGHT WITHIN REACH. WILL ENDORSE TO ONCOMING SHIFT
--- NOTE | 2021-10-07 19:38 | NUR ---
MS RN NOTE PATIENT IN BED, A/OX4. NO S/S OF APPARENT DISTRESS ON ROOM AIR. DENIES PAIN. ENDORSED TO ME BY CORKY JOYNER THAT PATIENT COMPLAINED THAT HIS LEG IS GETTING SWOLLEN AGAIN-- UPON ASSESSMENT R. LEG HAS RED BUMP THAT IS WARM TO TOUCH, NO EDEMA NOTED. PULSE NOTED, NO PALLOR. SAFETY IN PLACE. WILL CONTINUE WITH PATIENT'S CARE PLAN.
[2021-10-07 20:00] VITALS: BP 119/84
--- NOTE | 2021-10-07 21:16 | NUR ---
MS RN NOTE MESSAGED GEOSCIENCE SPECIALIST, DOCTOR MANI IF SHE WANTS TO HOLD SCHEDULED 2100 DOSE OF LOVENOX SINCE IT WAS HELD LAST NIGHT FOR SUPPOSEDLY I&D. PER GEOSCIENCE SPECIALIST GIVE LOVENOX IF PROCEDURE NOT DONE BY MN.
[2021-10-08] MEDS: ENOXAPARIN SODIUM 30 MG/0.3 ML DISP.SYRIN SQ SCH ×2 (00:07→21:13)
--- NOTE | 2021-10-08 01:12 | NUR ---
ms rn note new L.UA midline 18G inserted.
[2021-10-08 06:45] LABS: BASOPHILS % (AUTO) 0.1 % (0.0-2.0); EOSINOPHILS % (AUTO) 0.8 % (0.0-6.0); HEMATOCRIT 41 % (39-51); HEMOGLOBIN 13.8 g/dL (13.5-17.5); LYMPHOCYTES # (AUTO) 3.2 K/uL (0.8-4.8); LYMPHOCYTES % (AUTO) 43.2 % (20.0-44.0); MEAN CORPUSCULAR HGB CONC 33 g/dl (31.0-36.0); MEAN CORPUSCULAR VOLUME 85 fL (80-96); MONOCYTES # (AUTO) 0.8 K/uL (0.1-1.30); MONOCYTES % (AUTO) 10.8 % (2.0-12.0); NEUTROPHILS # (AUTO) 3.3 K/uL (1.8-8.9); NEUTROPHILS % (AUTO) 45.1 % (43.0-81.0); PLATELET COUNT (AUTO) 248 K/uL (150-450); RED BLOOD CELL COUNT(AUTO) 4.86 MIL/uL (4.5-6.0); WHITE BLOOD COUNT (AUTO) 7.4 K/uL (4.3-11.0)
--- NOTE | 2021-10-08 06:58 | NUR ---
MS RN CLOSING NOTE PATIENT IN BED, A/OX4. NO S/S OF APPARENT DISTRESS IN ROOM AIR. DENIES PAIN AT THIS TIME. NO FLUIDS RUNNING AT THIS TIME. ALL NEEDS ATTENDED. ALL SCHEDULED MEDICATION ADMINISTERED. SAFETY KEPT IN PLACE THE WHOLE SHIFT. WILL ENDORSE TO MORNING SHIFT RN FOR CONTINUITY OF CARE.
--- NOTE | 2021-10-08 07:25 | NUR ---
MS RN OPENING NOTES PATIENT IN BED, A/OX4. ON RA TOLERATING WELL. NO COMPLAINTS OF PAIN VERBALIZED AT THIS TIME. SAFETY MEASURES IN PLACE. WILL CONTINUE TO MONITOR PATIENT.
[2021-10-08 08:17] VITALS: BP 135/77
[2021-10-08 08:21] LABS: CALCIUM, SERUM 8.3 mg/dL (8.5-10.1); CREATININE 1.1 mg/dL (0.6-1.3); POTASSIUM 4.2 mmol/L (3.5-5.1)
[2021-10-08] MEDS: PANTOPRAZOLE 40 MG TABLET.DR PO SCH (08:23)
[2021-10-08] MEDS: CLOPIDOGREL BISULFATE 75 MG TABLET PO SCH (08:23)
[2021-10-08] MEDS: DOCUSATE SODIUM 100 MG CAPSULE PO SCH ×2 (08:23→17:00)
[2021-10-08] MEDS: CARVEDILOL 3.125 MG TABLET PO SCH (08:24)
[2021-10-08] MEDS: AMLODIPINE BESYLATE 2.5 MG TABLET PO SCH (08:24)
[2021-10-08] MEDS: VANCOMYCIN 0.75 GM in IV D5W 250 ML IV SCH (11:25)
[2021-10-08 16:00] VITALS: BP 125/77
[2021-10-08] MEDS: TAMSULOSIN 0.4 MG CAP.SR.24H PO SCH (18:30)
[2021-10-08] MEDS: ATORVASTATIN 40 MG TABLET PO SCH (18:30)
--- NOTE | 2021-10-08 18:50 | NUR ---
MS RN CLOSING NOTES PATIENT IN BED, A/OX4. PATIENT WAS SEEN BY DR LARSON. I/D NOT PERFORMED, DR. LARSON RECOMMENDED WARM COMPRESS TO THE R LEG TO REDUCE SWELLING. ALL ORDERS CARRIED OUT AND NEEDS MET. SAFETY MEASURES IN PLACE. WILL ENDORSE TO THE ROAD ROLLER ENGINEER NURSE FOR CÉSAR
--- NOTE | 2021-10-08 19:30 | NUR ---
MS RN OPENING NOTE RECEIVED PT AWAKE IN BED. A/OX4. ABLE TO MAKE NEEDS KNOWN. PT STABLE ON ROOM AIR. NO SOB OR S/S OF RESPIRATORY DISTRESS. IV ACCESS DIRK MIDLINE, INTACT AND PATENT. SAFETY PRECAUTIONS IN PLACE. BED IN LOWEST LOCKED POSITION, HOB ELEVATED, SIDE RAILS UP X2, AND CALL LIGHT AND TABLE WITHIN REACH. WILL CONTINUE WITH PLAN OF CARE.
[2021-10-08 20:00] VITALS: BP 123/76
[2021-10-08] MEDS: VANCOMYCIN 500 MG in IV D5W 100ml IV SCH (23:08)
--- NOTE | 2021-10-09 06:35 | NUR ---
MS RN CLOSING NOTE PT AWAKE IN BED. A/OX4. ABLE TO MAKE NEEDS KNOWN. PT STABLE ON ROOM AIR. NO SOB OR S/S OF RESPIRATORY DISTRESS. IV ACCESS DIRK MIDLINE SL, INTACT AND PATENT. ALL NEEDS MET AT THIS TIME. ALL DUE MEDS GIVEN ORDERED. SAFETY PRECAUTIONS IN PLACE AT ALL TIMES. BED IN LOWEST LOCKED POSITION, HOB ELEVATED, SIDE RAILS UP X2, AND CALL LIGHT AND TABLE WITHIN REACH. WILL ENDORSE TO ONCOMING NURSE FOR CÉSAR.
[2021-10-09 08:00] VITALS: BP 129/63
[2021-10-09] MEDS: DOCUSATE SODIUM 100 MG CAPSULE PO SCH (09:06)
[2021-10-09] MEDS: AMLODIPINE BESYLATE 2.5 MG TABLET PO SCH (09:06)
[2021-10-09] MEDS: CLOPIDOGREL BISULFATE 75 MG TABLET PO SCH (09:06)
[2021-10-09] MEDS: PANTOPRAZOLE 40 MG TABLET.DR PO SCH (09:06)
[2021-10-09 09:07] VITALS: BP 129/63
[2021-10-09] MEDS: CARVEDILOL 3.125 MG TABLET PO SCH (09:07)
[2021-10-09] MEDS: VANCOMYCIN 500 MG in IV D5W 100ml IV SCH (09:59)
[2021-10-09 10:14] LABS: CALCIUM, SERUM 8.5 mg/dL (8.5-10.1); CREATININE 1.1 mg/dL (0.6-1.3); POTASSIUM 3.5 mmol/L (3.5-5.1)
[2021-10-09 10:29] LABS: BASOPHILS % (AUTO) 0.3 % (0.0-2.0); HEMATOCRIT 44 % (39-51); HEMOGLOBIN 13.9 g/dL (13.5-17.5); LYMPHOCYTES # (AUTO) 2.5 K/uL (0.8-4.8); LYMPHOCYTES % (AUTO) 40.5 % (20.0-44.0); MEAN CORPUSCULAR HGB CONC 32 g/dl (31.0-36.0); MEAN CORPUSCULAR VOLUME 86 fL (80-96); MONOCYTES # (AUTO) 0.6 K/uL (0.1-1.30); MONOCYTES % (AUTO) 9.7 % (2.0-12.0); NEUTROPHILS % (AUTO) 48.5 % (43.0-81.0); PLATELET COUNT (AUTO) 267 K/uL (150-450); RED BLOOD CELL COUNT(AUTO) 5.08 MIL/uL (4.5-6.0); WHITE BLOOD COUNT (AUTO) 6.1 K/uL (4.3-11.0)
--- NOTE | 2021-10-09 13:40 | NUR ---
received pt. in am alert and oriented x4.dr. leyva in and dc order given,no antibiotiics ordered for home,but to have home health follow up.hot pack and abel wrap to affected leg.instructed pt. on application of same.all papers signed including belonging sheet.escorted to lobby accompanied by friend and environmental studies faculty member.prior to dc midline iv removed.
--- NOTE | 2021-10-09 13:44 | NUR ---
refused discharge photos.
[2021-10-09] MEDS ORDERED: ENOXAPARIN SODIUM 40 MG/0.4 ML DISP.SYRIN SQ SCH (21:00)
== END 2021-10-09 13:40 | disposition home health service (06) | DRG 604 ==
LOC: ER 20:39 → MED 10-03 01:24
PROVIDERS: ADMIT Internal Medicine; ATTEND Internal Medicine
PROC: 05HC33Z Insertion of Infusion Device into Left Basilic Vein, Percutaneous Approach (ICD-10-PCS; principal; 2021-10-08)
DX: S80.11XA Contusion of right lower leg, initial encounter (principal); N17.0 Acute kidney failure with tubular necrosis; L03.115 Cellulitis of right lower limb; I10 Essential (primary) hypertension; I25.10 Atherosclerotic heart disease of native coronary artery without angina pectoris; I87.2 Venous insufficiency (chronic) (peripheral); Z20.822 Contact with and (suspected) exposure to COVID-19; N40.0 Benign prostatic hyperplasia without lower urinary tract symptoms; Z98.61 Coronary angioplasty status; Z87.19 Personal history of other diseases of the digestive system; Z90.81 Acquired absence of spleen; Z88.0 Allergy status to penicillin; Z79.51 Long term (current) use of inhaled steroids; Z79.899 Other long term (current) drug therapy; Z79.02 Long term (current) use of antithrombotics/antiplatelets; E78.5 Hyperlipidemia, unspecified; W22.8XXA Striking against or struck by other objects, initial encounter; Y93.9 Activity, unspecified
CPT/HCPCS: 36415; 80048-TC; 80061-TC; 80202-TC; 83735-TC; 83880; 84100-TC; 84484-TC; 85025-TC; 87081-TC; 93970-TC; 97116-TC; 97530-TC; A6253; A6403; C9803; G0378; J1650; J1940; J2270; J3370; J7060

== ENCOUNTER 2022-05-24 16:26 | Inpatient (IN) | payer MEDICARE, OTHER ==
[~2022-05-24] VITALS: Ht 167.6 cm; Wt 77.3 kg
[~2022-05-24 16:26] MED LIST changes: -FURO-145 PO; -POTA8TAB3 PO
--- NOTE | 2022-05-24 16:30 | NUR ---
SUZANNE RA860 From Home "Non-Traumatic Lower Back Pain. PLACED ON BED, AAOX4, BREATHING EVEN AND UNLABORED SATURATING AT 96%RA, IN PAIN 10/10 PS.
[2022-05-24] MEDS ORDERED: MORPHINE SULFATE INJ 4 MG/ML DISP.SYRIN ONE ×2 (16:49→22:13)
[2022-05-24] MEDS ORDERED: ONDANSETRON HCL/PF 4 MG/2 ML VIAL ONE (16:49)
--- NOTE | 2022-05-24 16:50 | NUR ---
BLOOD DRAWN AND SENT TO LAB
[2022-05-24] MEDS ORDERED: IV NS 0.9% 500 ML BAG IV ONE (17:00)
[2022-05-24] MEDS ORDERED: ONDANSETRON HCL/PF 4 MG/2 ML VIAL IVP ONE (17:00)
[2022-05-24] MEDS ORDERED: MORPHINE SULFATE INJ 2 MG/ML DISP.SYRIN IV ONE (17:00)
[2022-05-24 17:24] LABS: BASOPHILS % (AUTO) 0.2 % (0.0-2.0); EOSINOPHILS % (AUTO) 0.4 % (0.0-6.0); HEMATOCRIT 42 % (39-51); HEMOGLOBIN 13.7 g/dL (13.5-17.5); LYMPHOCYTES # (AUTO) 3.4 K/uL (0.8-4.8); LYMPHOCYTES % (AUTO) 35.3 % (20.0-44.0); MEAN CORPUSCULAR HGB CONC 33 g/dl (31.0-36.0); MEAN CORPUSCULAR VOLUME 83 fL (80-96); MONOCYTES # (AUTO) 1.4 K/uL (0.1-1.30); MONOCYTES % (AUTO) 14.2 % (2.0-12.0); NEUTROPHILS # (AUTO) 4.8 K/uL (1.8-8.9); NEUTROPHILS % (AUTO) 49.9 % (43.0-81.0); PLATELET COUNT (AUTO) 236 K/uL (150-450); RED BLOOD CELL COUNT(AUTO) 5.01 MIL/uL (4.5-6.0); WHITE BLOOD COUNT (AUTO) 9.5 K/uL (4.3-11.0)
[2022-05-24 17:29] LABS: CALCIUM, SERUM 9.2 mg/dL (8.5-10.1); CREATININE 1.2 mg/dL (0.6-1.3); POTASSIUM 4.5 mmol/L (3.5-5.1)
--- NOTE | 2022-05-24 17:37 | NUR ---
URINE SAMPLE SENT TO LAB
[2022-05-24 17:43] LABS: ALBUMIN 3.4 g/dL (3.4-5.0); BILIRUBIN,DIRECT 0.3 mg/dL (0.0-0.2); BILIRUBIN,TOTAL 1.8 mg/dL (0.2-1.0); TOTAL PROTEIN, SERUM 6.9 g/dL (6.4-8.2)
--- NOTE | 2022-05-24 17:53 | NUR ---
PATIENT TAKEN TO CT VIA MARIO
[2022-05-24 17:58] LABS: BILIRUBIN,URINE NEGATIVE (NEGATIVE); COLOR,URINE YELLOW (YELLOW); LEUKOCYTE ESTERASE ,URINE TRACE (NEGATIVE); NITRITE, URINE NEGATIVE (NEGATIVE); PROTEIN,URINE NEGATIVE (NEGATIVE); UGLUCOSE NEGATIVE (NEGATIVE); UROBILINOGEN,URINE 0.2 EU/dL (0.2)
[2022-05-24 18:34] LABS: BACTERIA,URINE None seen /HPF (None Seen); SQUAMOUS EPITHELIAL CELL,UR 0-2 /HPF (None Seen)
[2022-05-24] MEDS ORDERED: HYDR-4209 PO (19:52)
[2022-05-24] MEDS ORDERED: CARI350T PO (19:52)
--- NOTE | 2022-05-24 20:15 | NUR ---
COVID SWAB COLLECTED
[2022-05-24] MEDS ORDERED: MORPHINE SULFATE INJ 2 MG/ML DISP.SYRIN IV PRN (22:00)
[2022-05-24] MEDS ORDERED: MAGNESIUM HYDROXIDE 30 ML UDC PO PRN (23:00)
[2022-05-24] MEDS ORDERED: Z GUARD REMEDY 4 OZ OINT TP PRN (23:00)
[2022-05-24] MEDS ORDERED: ONDANSETRON HCL/PF 4 MG/2 ML VIAL IVP PRN (23:00)
[2022-05-24] MEDS ORDERED: ACETAMINOPHEN 325 MG TABLET PO PRN (23:00)
--- NOTE | 2022-05-25 00:26 | NUR ---
REPORT GIVEN TO NALINI FRIED ON THIRD FLOOR
[2022-05-25 00:30] VITALS: BP 116/63
--- NOTE | 2022-05-25 00:30 | NUR ---
MS HAND WINDER NOTE RECEIVED REPORT FROM ER NURSE. PT IS BEING ADMITTED IN ROOM 304-1 FOR RETRACTABLE BACK PAIN. PT IS A/O X 3-4, ABLE TO MAKE NEEDS KNOWN. PT IS ORIENTED TO ROOM. PT IS C/O SEVERE BACK PAIN WITH PAIN MEDS IN PLACE. PT IS REFUSING TO BE TOUCHED, AND HE IS REFUSING SKIN ASSESSMENT D/T LOWER BACK PAIN. BUT PT HAS DISCOLORATIONS TO RIGHT, AND LEFT HANDS, AND FA. IV ACCESS TO RIGHT FA 20G, PATENT, AND INTACT. SAFETY MEASURES IN PLACE: CALL LIGHT WITHIN REACH, BED LOCKED, IN LOW POSITION, SR UP X2. WILL CONTINUE TO MONITOR PT.
--- NOTE | 2022-05-25 00:52 | NUR ---
wheeled patient via gurney accompanied by rn in no distress. RN assigned at bedside to assume care.
[2022-05-25] MEDS: LIDOCAINE 5% (PATCH) 1 EA PATCH TP SCH ×2 (01:01→23:48)
[2022-05-25] MEDS: CYCLOBENZAPRINE 10 MG TABLET PO SCH ×4 (01:01→16:02)
[2022-05-25] MEDS ORDERED: MORPHINE SULFATE INJ 2 MG/ML DISP.SYRIN IV PRN (03:00)
[2022-05-25 05:59] LABS: CALCIUM, SERUM 8.4 mg/dL (8.5-10.1); CARBON DIOXIDE 27 mmol/L (21-32); CHLORIDE 104 mmol/L (98-107); GLUCOSE 101 mg/dL (74-106); MAGNESIUM 2.1 mg/dL (1.8-2.4); PHOSPHORUS 3.2 mg/dL (2.5-4.9); POTASSIUM 3.8 mmol/L (3.5-5.1); SODIUM SERUM 137 mmol/L (136-145); UREA NITROGEN, BLOOD 20 mg/dL (7-18)
[2022-05-25 06:03] LABS: CHOLESTEROL 103 mg/dL (<200); HDL CHOLESTEROL 34 mg/dL (40-60); LDL 64 mg/dL (0-99); TRIGLYCERIDES 70 mg/dL (30-150)
--- NOTE | 2022-05-25 07:00 | NUR ---
MS RN OPENING NOTE PATIENT LAYING IN BED, A/O X 3, ABLE TO MAKE NEEDS KNOWN, TOLERATING WELL ON ROOM AIR WITH NO S/S RESPIRATORY DISTRESS. NO COMPLAINTS OF PAIN OR DISCOMFORT AT THIS TIME. R AC # 20 SL CLEAN, INTACT, AND FLUSHING WELL. SAFETY MEASURES IN PLACE: BED IN LOWEST LOCKED POSITION, SIDE RAILS UP X 2, CALL LIGHT WITHIN REACH. WILL CONTINUE TO MONITOR.
--- NOTE | 2022-05-25 07:20 | NUR ---
MS RN CLOSING NOTE LEFT PATIENT IN BED, AWAKE. PT ALERT ORIENTED X 3-4. NO ACUTE DISTRESS NOTED, BREATHING UNLABORED, NO SOB NOTED. DENIED ANY PAIN AT THIS TIME. IV ACCESS PATENT AND INTACT, NO REDNESS NO SWELLING NOTED. SAFETY MEASURES IN PLACE, CALL LIGHT WITHIN REACH. WILL ENDORSE PT TO AM SHIFT NURSE FOR CÉSAR.
[2022-05-25 07:55] LABS: BASOPHILS % (AUTO) 0.1 % (0.0-2.0); EOSINOPHILS % (AUTO) 0.1 % (0.0-6.0); HEMATOCRIT 39 % (39-51); HEMOGLOBIN 12.8 g/dL (13.5-17.5); LYMPHOCYTES # (AUTO) 2.7 K/uL (0.8-4.8); LYMPHOCYTES % (AUTO) 25.6 % (20.0-44.0); MEAN CORPUSCULAR HGB CONC 33 g/dl (31.0-36.0); MEAN CORPUSCULAR VOLUME 83 fL (80-96); MONOCYTES # (AUTO) 1.5 K/uL (0.1-1.30); MONOCYTES % (AUTO) 13.6 % (2.0-12.0); NEUTROPHILS # (AUTO) 6.5 K/uL (1.8-8.9); NEUTROPHILS % (AUTO) 60.6 % (43.0-81.0); PLATELET COUNT (AUTO) 234 K/uL (150-450); RED BLOOD CELL COUNT(AUTO) 4.64 MIL/uL (4.5-6.0); WHITE BLOOD COUNT (AUTO) 10.7 K/uL (4.3-11.0)
[2022-05-25 08:00] VITALS: BP 120/63
[2022-05-25] MEDS ORDERED: HYDROCODONE/APAP 5/325MG TABLET PO PRN ×2 (08:00→12:30)
[2022-05-25] MEDS: PANTOPRAZOLE 40 MG TABLET.DR PO SCH (08:06)
[2022-05-25] MEDS: ENOXAPARIN SODIUM 40 MG/0.4 ML DISP.SYRIN SQ SCH (08:07)
[2022-05-25] MEDS: MORPHINE SULFATE INJ 4 MG/ML DISP.SYRIN IV PRN ×2 (08:19→12:23)
[2022-05-25] MEDS: CARVEDILOL 3.125 MG TABLET PO SCH (08:29)
[2022-05-25] MEDS: LOSARTAN POTASSIUM 50 MG TABLET PO SCH (08:30)
[2022-05-25] MEDS: AMLODIPINE BESYLATE 5 MG TABLET PO SCH (08:30)
[2022-05-25] MEDS: CLOPIDOGREL BISULFATE 75 MG TABLET PO SCH (08:30)
[2022-05-25] MEDS ORDERED: ISOS30TA86 PO (09:29)
[2022-05-25] MEDS: METHOCARBAMOL (500MG) 500 MG TABLET PO SCH ×2 (12:22→21:14)
[2022-05-25] MEDS ORDERED: HYDROCODONE/APAP 10/325MG TABLET PO PRN (12:30)
[2022-05-25 16:00] VITALS: BP 126/64
--- NOTE | 2022-05-25 19:00 | NUR ---
MS RN CLOSING NOTE PATIENT LAYING IN BED, A/O X 3, ABLE TO MAKE NEEDS KNOWN, TOLERATING WELL ON ROOM AIR WITH NO S/S RESPIRATORY DISTRESS. R AC # 20 SL CLEAN, INTACT, AND FLUSHING WELL. SAFETY MEASURES IN PLACE: BED IN LOWEST LOCKED POSITION, SIDE RAILS UP X 2, CALL LIGHT WITHIN REACH. ALL NEEDS MET. WILL ENDORSE TO RETAIL MANAGER FOR CÉSAR.
[2022-05-25 20:00] VITALS: BP 121/60
--- NOTE | 2022-05-25 20:24 | NUR ---
MS RN NOTE PATIENT SLEEPING IN BED, EASILY AWAKENED, PT ABLE TO MAKE NEEDS KNOWN. PT STABLE ON RA, NO S/S OF DISTRESS OR SOB NOTED, BREATHING EVEN AND UNLABORED. IV ACCESS ON RAC #20G INTACT AND SALINE LOCKED. PER DAYSHIFT RN, PATIENT STILL REFUSING TO BE TURNED FOR SKIN ASSESSMENT. SAFETY MEASURES IN PLACE: CALL LIGHT WITHIN REACH, SIDE RAILS UP X 2, BED LOCKED IN LOWEST POSITION, BED ALARM ON. WILL CONTINUE TO MONITOR PATIENT
[2022-05-25] MEDS: ATORVASTATIN 40 MG TABLET PO SCH (21:14)
[2022-05-25] MEDS: TAMSULOSIN 0.4 MG CAP.SR.24H PO SCH (21:14)
[2022-05-26] MEDS: METHOCARBAMOL (500MG) 500 MG TABLET PO SCH ×3 (05:19→20:54)
--- NOTE | 2022-05-26 06:57 | NUR ---
MS RN CLOSING NOTE PATIENT SLEEPING IN BED, EASILY AWAKENED, PT ABLE TO MAKE NEEDS KNOWN. PT STABLE ON RA, NO S/S OF DISTRESS OR SOB NOTED, BREATHING EVEN AND UNLABORED. IV ACCESS ON RAC #20G INTACT AND SALINE LOCKED. MEDICATIONS GIVEN ORDERED, PT NEEDS MET THROUGHOUT SHIFT. NO SIGNIFICANT CHANGES THIS SHIFT. SAFETY MEASURES IN PLACE: CALL LIGHT WITHIN REACH, SIDE RAILS UP X 2, BED LOCKED IN LOWEST POSITION, BED ALARM ON. WILL ENDORSE TO DAYSHIFT RN FOR CONTINUITY OF CARE
--- NOTE | 2022-05-26 07:20 | NUR ---
MS RN OPENING NOTE PATIENT IN BED AWAKE , A/O X 3, ABLE TO MAKE NEEDS KNOWN, TOLERATING WELL ON ROOM AIR WITH NO SOB OR DISTRESS NOTED . NO COMPLAINTS OF PAIN OR DISCOMFORT AT THIS TIME. R AC # 20 SL CLEAN, INTACT, AND FLUSHING WELL. SAFETY MEASURES IN PLACE: BED IN LOWEST LOCKED POSITION, SIDE RAILS UP X 2, CALL LIGHT WITHIN REACH. WILL CONTINUE TO MONITOR.
[2022-05-26 08:00] VITALS: BP 126/68
[2022-05-26] MEDS: PANTOPRAZOLE 40 MG TABLET.DR PO SCH ×2 (08:55→09:50)
--- NOTE | 2022-05-26 09:00 | NUR ---
RN NOTES ENDORSED TO ALEXA FRIED FOR CONTINUITY OF CARE
[2022-05-26] MEDS: CYCLOBENZAPRINE 10 MG TABLET PO SCH ×3 (09:49→17:15)
[2022-05-26] MEDS: LOSARTAN POTASSIUM 50 MG TABLET PO SCH (09:49)
[2022-05-26] MEDS: CLOPIDOGREL BISULFATE 75 MG TABLET PO SCH (09:50)
[2022-05-26] MEDS: AMLODIPINE BESYLATE 5 MG TABLET PO SCH (09:50)
[2022-05-26] MEDS: CARVEDILOL 3.125 MG TABLET PO SCH (09:50)
[2022-05-26] MEDS: ENOXAPARIN SODIUM 40 MG/0.4 ML DISP.SYRIN SQ SCH (09:55)
[2022-05-26 16:00] VITALS: BP 100/64
[2022-05-26 20:00] VITALS: BP 123/69
--- NOTE | 2022-05-26 20:00 | NUR ---
MS RN OPENING NOTE RECEIVED PATIENT LYING ASLEEP IN BED. A/O X 3, ABLE TO MAKE NEEDS KNOWN, TOLERATING WELL ON ROOM AIR WITH NO SIGNS AND SYMPTOMS OF RESPIRATORY DISTRESS. NO COMPLAINTS OF PAIN OR DISCOMFORT AT THIS TIME. IV ACCESS AT RIGHT AC #20 SL, PATENT AND INTACT, FLUSHING WELL. SAFETY MEASURES IN PLACE: BED IN LOWEST LOCKED POSITION, SIDE RAILS UP X 2, CALL LIGHT WITHIN REACH. WILL CONTINUE TO MONITOR.
--- NOTE | 2022-05-26 20:13 | NUR ---
MS RN CLOSING NOTE PATIENT SLEEPING IN BED, PT ABLE TO MAKE NEEDS KNOWN. PT STABLE ON RA, NO S/S OF DISTRESS OR SOB NOTED, BREATHING EVEN AND UNLABORED. IV ACCESS ON RAC #20G INTACT AND SALINE LOCKED. MEDICATIONS GIVEN ORDERED, PT NEEDS MET THROUGHOUT SHIFT. PATIENT HAS BEEN SEEN BY PT AND RECOMMEND FOR DISCHARGED IN SNF. NO SIGNIFICANT CHANGES THIS SHIFT. SAFETY MEASURES IN PLACE: CALL LIGHT WITHIN REACH, SIDE RAILS UP X 2, BED LOCKED IN LOWEST POSITION, BED ALARM ON. ENDORSE TO NIGHTSHIFT RN FOR CONTINUITY OF CARE
--- NOTE | 2022-05-26 21:00 | NUR ---
RN NOTES PATIENT 02 SATURATION 91%, AT THIS TIME BREATHING ROOM AIR. HES BEEN ANXIOUS. ATTACHED TO 0XYGEN AT 2LPM VIA NASAL CANNULA. TOLERATING WELL.
--- NOTE | 2022-05-26 21:30 | NUR ---
RN NOTES ATTACHED TO 02 2LPM VIA NASAL CANNULA, CURRENTLY 02 SAT: 96-97%,
--- NOTE | 2022-05-26 22:13 | NUR ---
OMNICELL INCIDENT: SHOULD HAVE TAKEN ATORVASTATIN 40MG AT [facility] BUT ZERO INVENTORY. TOOK ONE AT THE OTHER TERMINAL.
[2022-05-26] MEDS: ATORVASTATIN 40 MG TABLET PO SCH (22:15)
[2022-05-26] MEDS: TAMSULOSIN 0.4 MG CAP.SR.24H PO SCH (22:15)
[2022-05-26] MEDS: LIDOCAINE 5% (PATCH) 1 EA PATCH TP SCH (22:19)
--- NOTE | 2022-05-27 01:49 | NUR ---
PATIENT IS COMPLAINING OF DIFFICULTY DEFECATING (CONSTIPATION). NO BOWEL MOVEMENT FOR 5 DAYS VERBALIZED. GIVEN MILK OF MAGNESIA 30ML PRN. WILL MONITOR
[2022-05-27] MEDS: METHOCARBAMOL (500MG) 500 MG TABLET PO SCH ×3 (05:28→21:25)
[2022-05-27 07:00] VITALS: BP 116/75
--- NOTE | 2022-05-27 07:25 | NUR ---
MS RN OPENING NOTE RECEIVED PT IN BED ASLEEP, EASILY AROUSED. PT A/O X3, ABLE TO MAKE NEEDS KNOWN. PT WAS ON O2 AT 2L/MIN VIA NASAL CANNULA, TOLERATING WELL. NO SOB NOTED. NOT IN ANY SIGN OF RESPIRATORY DISTRESS. IV ACCESS IN RAC G#20, INTACT AND PATENT. SAFETY MEASURE IN PLACE: BED IN LOWEST AND LOCKED POSITION, BED RAILS UPX2, BED ALARM ON, AND CALL LIGHT WITHIN REACH. WILL CONTINUE TO MONITOR PT.
--- NOTE | 2022-05-27 07:47 | NUR ---
MS RN CLOSING NOTE PATIENT SLEEPING IN BED, PT ABLE TO MAKE NEEDS KNOWN. PT STABLE ON RA, NO S/S OF DISTRESS OR SOB NOTED, BREATHING EVEN AND UNLABORED. IV ACCESS ON RAC #20G INTACT AND SALINE LOCKED. MEDICATIONS GIVEN ORDERED, PT NEEDS MET THROUGHOUT SHIFT. DUE MEDS GIVEN. SAFETY MEASURES IN PLACE: CALL LIGHT WITHIN REACH, SIDE RAILS UP X 2, BED LOCKED IN LOWEST POSITION, BED ALARM ON. ENDORSE TO DAY SHIFT RN FOR CONTINUITY OF CARE
[2022-05-27] MEDS: CLOPIDOGREL BISULFATE 75 MG TABLET PO SCH (09:14)
[2022-05-27] MEDS: ENOXAPARIN SODIUM 40 MG/0.4 ML DISP.SYRIN SQ SCH (09:14)
[2022-05-27] MEDS: CYCLOBENZAPRINE 10 MG TABLET PO SCH ×3 (09:14→16:21)
[2022-05-27] MEDS: LOSARTAN POTASSIUM 50 MG TABLET PO SCH (09:15)
[2022-05-27] MEDS: CARVEDILOL 3.125 MG TABLET PO SCH (09:16)
[2022-05-27] MEDS: AMLODIPINE BESYLATE 5 MG TABLET PO SCH (09:17)
[2022-05-27] MEDS ORDERED: LACTULOSE 10 G/15 ML UDC (PYXIS) PO ONE (11:30)
[2022-05-27] MEDS: MORPHINE SULFATE INJ 4 MG/ML DISP.SYRIN IV PRN (11:31)
--- NOTE | 2022-05-27 11:31 | NUR ---
RN NOTE PT C/O LOWER BACK PAIN, WITH PAIN SCALE LEVEL OF 9/10 AND REQUESTED FOR PAIN MEDICATION. MORPHINE 4MG IVP ADMINISTERED ORDERED PRN Q4HRS FOR SEVERE PAIN. WILL MONITOR AND REASSESS PT.
[2022-05-27] MEDS: DOCUSATE SODIUM LIQ 100 MG/10 ML UDC PO SCH ×2 (12:17→16:21)
[2022-05-27] MEDS: POLYETHYLENE GLYCOL 3350 17 GM POWD.PACK PO SCH (12:17)
[2022-05-27] MEDS ORDERED: oxyCODONE/APAP (5/325 MG) 1 UDTAB TABLET PO PRN ×2 (15:30)
[2022-05-27] MEDS: CELECOXIB 100 MG CAPSULE PO SCH ×2 (16:45→21:25)
[2022-05-27] MEDS ORDERED: GADOTERATE MEGLUMINE 10 MMOL/20 ML VIAL IV ONE (17:19)
--- NOTE | 2022-05-27 17:23 | NUR ---
RN NOTE CALLED DR. LEE AND MADE HIM AWARE THAT AFTER GIVING THE LACTULOSE, COLACE, AND MIRALAX MEDICATIONS. PT STILL NO BM. PER DR. LEE TO GIVE PT DULCOLAX 10MG SUPPOSITORY ONE TIME DOSE ONLY. ORDERS CARRIED OUT.
[2022-05-27] MEDS ORDERED: BISACODYL SUPP (10 MG) 10 MG/SUPP.RECT SUPP.RECT RC ONE (17:30)
--- NOTE | 2022-05-27 17:45 | NUR ---
RN NOTE DULCOLAX 10MG SUPPOSITORY ADMINISTERED ORDERED ONE TIME DOSE FOR CONSTIPATION. WILL MONITOR AND REASSESS PT.
--- NOTE | 2022-05-27 18:50 | NUR ---
MS RN CLOSING NOTE PT IN AWAKE RESTING IN BED. PT A/O X3, ABLE TO MAKE NEEDS KNOWN. PT IS ON O2 AT 2L/MIN VIA NASAL CANNULA, TOLERATING WELL. NO SOB NOTED. NOT IN ANY SIGN OF RESPIRATORY DISTRESS. IV ACCESS IN RAC G#20, INTACT AND PATENT. ALL NEEDS ATTENDED. KEPT CLEAN AND COMFORTABLE. PT STILL NO BM AFTER DULCOLAX SUPPOSITORY ADMINISTRATION NOTED AT THIS TIME.SAFETY MEASURE IN PLACE: BED IN LOWEST AND LOCKED POSITION, BED RAILS UPX2, BED ALARM ON, AND CALL LIGHT WITHIN REACH. WILL ENDORSE TO CERTIFIED MAINTENANCE WELDER NURSE FOR CÉSAR.
--- NOTE | 2022-05-27 19:25 | NUR ---
MS RN OPENING NOTE RECEIVED PATIENT LYING IN BED; AWAKE, ALERT AND ORIENTED X 3. ON O2 INHALATION @ 2LPM VIA NASAL CANNULA; TOLERATING WELL. NOT IN ANY FORM OF RESPIRATORY DISTRESS. DENIES ANY PAIN OR DISCOMFORT AT THIS TIME. WITH IV ACCESS ON RIGHT ANTECUBITAL 20G; INTACT, PATENT AND SALINE LOCKED. ABLE TO MAKE NEEDS KNOWN. SAFETY MEASURES IMPLEMENTED: HEAD OF BED ELEVATED, CALL LIGHT AND TABLE WITHIN REACH, SIDE RAILS UP X 3, BED IN LOWEST LOCKED POSITION. WILL CONTINUE PLAN OF CARE.
[2022-05-27 20:00] VITALS: BP 126/75
[2022-05-27 20:14] VITALS: BP 126/75
[2022-05-27] MEDS: ATORVASTATIN 40 MG TABLET PO SCH (21:25)
[2022-05-27] MEDS: TAMSULOSIN 0.4 MG CAP.SR.24H PO SCH (21:26)
[2022-05-27] MEDS: LIDOCAINE 5% (PATCH) 1 EA PATCH TP SCH (23:01)
[2022-05-28] MEDS: METHOCARBAMOL (500MG) 500 MG TABLET PO SCH ×3 (04:02→20:33)
--- NOTE | 2022-05-28 06:45 | NUR ---
MS RN CLOSING NOTE PATIENT IN BED; AWAKE, A/O X 3. ON O2 INHALATION @ 2LPM VIA NASAL CANNULA; TOLERATING WELL. IN NO ACUTE DISTRESS. NO C/O ANY PAIN OR DISCOMFORT AT THIS TIME. WITH IV ACCESS ON RIGHT ANTECUBITAL 20G; INTACT, PATENT AND SALINE LOCKED. ALL NEEDS ATTENDED. ALL DUE MEDS GIVEN ORDERED. SAFETY PRECAUTIONS MAINTAINED: HEAD OF BED ELEVATED, CALL LIGHT AND TABLE WITHIN REACH, SIDE RAILS UP X 3, BED IN LOWEST LOCKED POSITION. ENDORSED TO CORKY TREVIÑO FOR CÉSAR.
[2022-05-28 07:00] VITALS: BP 124/84
[2022-05-28] MEDS: PANTOPRAZOLE 40 MG TABLET.DR PO SCH (08:23)
[2022-05-28] MEDS: POLYETHYLENE GLYCOL 3350 17 GM POWD.PACK PO SCH (08:39)
[2022-05-28] MEDS: DOCUSATE SODIUM LIQ 100 MG/10 ML UDC PO SCH ×2 (08:40→16:08)
[2022-05-28] MEDS: CYCLOBENZAPRINE 10 MG TABLET PO SCH ×3 (08:40→16:08)
[2022-05-28] MEDS: CLOPIDOGREL BISULFATE 75 MG TABLET PO SCH (08:40)
[2022-05-28] MEDS: AMLODIPINE BESYLATE 5 MG TABLET PO SCH (08:40)
[2022-05-28] MEDS: CARVEDILOL 3.125 MG TABLET PO SCH (08:40)
[2022-05-28] MEDS: CELECOXIB 100 MG CAPSULE PO SCH ×2 (08:40→20:33)
[2022-05-28] MEDS: ENOXAPARIN SODIUM 40 MG/0.4 ML DISP.SYRIN SQ SCH (08:41)
[2022-05-28] MEDS: LOSARTAN POTASSIUM 50 MG TABLET PO SCH (08:41)
[2022-05-28] MEDS: MORPHINE SULFATE INJ 4 MG/ML DISP.SYRIN IV PRN ×2 (09:00→16:09)
[2022-05-28 16:00] VITALS: BP 141/83
--- NOTE | 2022-05-28 18:45 | NUR ---
MS RN CLOSING NOTE PT IN AWAKE RESTING IN BED. PT A/O X3, ABLE TO MAKE NEEDS KNOWN. PT IS ON O2 AT 2L/MIN VIA NASAL CANNULA, TOLERATING WELL. NO SOB NOTED. NOT IN ANY SIGN OF RESPIRATORY DISTRESS. IV ACCESS IN RAC G#20, INTACT AND PATENT. ALL NEEDS ATTENDED. KEPT CLEAN AND COMFORTABLE. SAFETY MEASURE IN PLACE: BED IN LOWEST AND LOCKED POSITION, BED RAILS UPX2, BED ALARM ON, AND CALL LIGHT WITHIN REACH. WILL ENDORSE TO FIRE PREVENTION OFFICER NURSE FOR CÉSAR.
--- NOTE | 2022-05-28 19:30 | NUR ---
RN OPENING NOTE RECEIVED PATIENT IN BED, ALERT AND ORIENTED X3. ABLE TO COMMUNICATE NEEDS WITH THE STAFFS. AFEBRILE AND NOT IN ANY FORM OF ACUTE DISTRESS. BREATHING EVEN AND NON LABORED. ON O2 INHALATION VIA NASAL CANNULA AT 2LPM. WITH IV ACCESS ON RIGHT AC 20G. SAFETY MEASURES IN PLACE. KEPT BED IN LOCKED AND IN LOW POSITION. SIDE RAILS UP X2. ADVISED TO USE THE CALL LIGHT WHEN IN NEED OF ASSISTANCE.
[2022-05-28 20:00] VITALS: BP_SYST 122; BP_DIAS 77; BP_DIAS 79
[2022-05-28] MEDS: ATORVASTATIN 40 MG TABLET PO SCH (21:32)
[2022-05-28] MEDS: TAMSULOSIN 0.4 MG CAP.SR.24H PO SCH (21:32)
--- NOTE | 2022-05-28 22:18 | NUR ---
CALLED [facility] AND SPOKE TO ARPIT (CHARGE NURSE IN ORTHO UNIT) AND GAVE REPORT AND HEALTH STATUS OF PATIENT THAT WILL BE TRANSFERRED TO THEIR CARE. PER DESTIE FROM ADMISSION DEPARTMENT, PATIENT WILL BE ASSIGNED TO RM [id number]. TRANSPORTATION ARRANGED BY CHARGE NURSE AND SENIOR NURSE AND AWAITING FOR PURSE MAKER.
[2022-05-28] MEDS: LIDOCAINE 5% (PATCH) 1 EA PATCH TP SCH (22:27)
--- NOTE | 2022-05-29 01:30 | NUR ---
MS RN NOTES JUICE WEIGHER BY TRANSPORT THIS TIME WITH BP 108/62,HR-75,RR-20,WITH O2 SAT 91% ON ROOM AIR.SALINE LOCK IN PLACE INTACT AND PATENT.PAIN TOLERABLE AT THE MOMENT.ALL PAPER WORKS HANDED TO PARAMEDICS,IN STABLE CONDITION GOING TO [facility].
== END 2022-05-29 02:22 | disposition short-term general hospital (02) | DRG 543 ==
LOC: ER 16:31 → TRANSITION 23:49 → MED 05-25 00:03
PROVIDERS: ADMIT Nurse Practitioner Family; ATTEND Internal Medicine
DX: M48.56XA Collapsed vertebra, not elsewhere classified, lumbar region, initial encounter for fracture (principal); R17 Unspecified jaundice; M43.16 Spondylolisthesis, lumbar region; I25.10 Atherosclerotic heart disease of native coronary artery without angina pectoris; M48.061 Spinal stenosis, lumbar region without neurogenic claudication; E78.5 Hyperlipidemia, unspecified; I10 Essential (primary) hypertension; I70.0 Atherosclerosis of aorta; M62.830 Muscle spasm of back; K59.00 Constipation, unspecified; M25.78 Osteophyte, vertebrae; M47.816 Spondylosis without myelopathy or radiculopathy, lumbar region; M62.838 Other muscle spasm; M51.36 Other intervertebral disc degeneration, lumbar region; N40.0 Benign prostatic hyperplasia without lower urinary tract symptoms; Z79.02 Long term (current) use of antithrombotics/antiplatelets; Z79.899 Other long term (current) drug therapy; Z90.81 Acquired absence of spleen; Z95.5 Presence of coronary angioplasty implant and graft; Z88.0 Allergy status to penicillin
CPT/HCPCS: 36415; 72131-TC; 72158-TC; 80048-TC; 80061-TC; 80076-TC; 81001; 83690-TC; 83735-TC; 84100-TC; 85025-TC; 87081-TC; 97110-TC; 97112-TC; 97116-TC; 97530-TC; A9575; C9803; G0378; J1650; J2270; J2405